=== PATIENT | male | born 1960 | race Caucasian/White ===

== ENCOUNTER 2023-08-04 10:24 | Emergency (ER) | payer BC, SELFPAY ==
[2023-08-04 10:33] VITALS: BP 138/97; PULSE 78; RESP 12; TEMP 36.2; O2SAT 98; BMI 26.9
--- NOTE | 2023-08-04 10:59 | ED.GENADULT ---
HPI - General Adult General Time Seen by Provider: 10:59 Date Seen: 08/04/23 Chief complaint: Nausea/Vomiting Stated complaint: obstruction in esophagus Time Seen by Provider: 08/04/23 10:59 Source: patient and RN notes reviewed Mode of arrival: ambulatory Limitations: no limitations History of Present Illness HPI narrative: This 63-year-old male is presenting with concern steak food bolus impaction. He was eating at a restaurant at 5:00 p.m. last night when steak become stuck. He had vomited up this food bolus by about 5:30 p.m.. By 10:00 a.m. last night, patient thought he could eat again and ate more steak. He states this was a grave mistake. This became obstructed. He is had sense of pain and burning that will buildup and then he will vomit. He thought maybe he was getting some water down but he has had this episodic continuing pain with subsequent vomiting. He is not vomited up the steak. He has had a history of food getting stuck before but has never required an EGD. Patient denies any cardiac history, no significant respiratory history, does have hypertension but admittedly did not take his lisinopril this morning. Related Data Home Medications Medication Instructions Recorded Confirmed atorvastatin 20 mg tablet 20 mg PO DAILY 08/04/23 08/04/23 lisinopril 20 mg tablet 20 mg PO BID 08/04/23 08/04/23 Allergies Allergy/AdvReac Type Severity Reaction Status Date / Time No Known Drug Allergies Allergy Verified 08/04/23 10:39 Review of Systems Status of ROS: Reports: 6 or more systems reviewed and unremarkable except as noted in History and below [facility] Social History Smoking Status: Former smoker How often do you have a drink containing alcohol: 4 or more times a week AUDIT-C Alcohol total score: 4 Non-prescribed substance use: marijuana (any form) Non-prescribed substance use details: thc edibles twice/week Exam Const: Vital Signs, click to edit/add: Vital Signs - 24 hr 08/04/23 10:33 08/04/23 11:30 08/04/23 11:31 Temperature 97.1 F L Pulse Rate 86 Pulse Rate [Pulse Oximeter] 78 80 Respiratory Rate 12 12 12 Blood Pressure 171/110 H Blood Pressure [Ri ght Upper Arm] 138/97 H 171/110 H Pulse Oximetry 98 97 97 Oxygen Delivery Me thod Room Air Room Air 08/04/23 11:34 08/04/23 12:01 08/04/23 13:42 Temperature 97.1 F L Pulse Rate 71 Pulse Rate [Pulse Oximeter] 72 Respiratory Rate 12 12 Blood Pressure 162/95 H Blood Pressure [Ri ght Upper Arm] 142/75 H Pulse Oximetry 98 100 Oxygen Delivery Me thod 63-year-old male hanging onto an emesis bag which I did see him vomit small amount of clear fluids that looked like water up once. He is able to speak in complete sentences, no concern for his airway. Face is atraumatic, sclera clear, conjugate gaze. Neck supple without masses. Lungs are clear with good air entry, no wheezing or crackles. CV regular rate and rhythm no murmur, normal S1 and S2. Abdomen is soft, nontender, nondistended. Documenting provider has reviewed patient's vital signs: yes Course Course Hospital Course: Will establish cardiac monitoring, pulse oximetry an IV. Will give him a L of normal saline and identify basic labs. Will try a 1 mg IV glucagon. I have paged our general surgeon, talked with our cook house supervisor to see if we could possibly arrange for emergent EGD here. I have shared with the patient that we do not have anyone on-call for this, I cannot promise that we will be able to do this procedure here. Will 1st see if glucagon works. Reevaluation(s) Time of Reevaluation #1: 11:47 Reevaluation #1: Reviewed with patient that at this point we have not gotten any call back from nursing staff to come in for endoscopy. Again, we do not have an emergent call scheduled for this but we did attempt to see if we could find any staff to come in. The glucagon did not work. We will contact [facility] where they do have emergent endoscopy and see if they will accept the patient. Time of Reevaluation #2: 13:21 Reevaluation #2: Patient is feeling better. Between the EZ gas and glucagon, his symptoms have resolved, has been able to drink 2 full glasses of water without any complication. He states he feels better. We are going to discharge to home with initial liquid diet. Nursing staff will be contacting [facility] to let them know he will not be coming. Consultations Consultation #1: Have heard back from , this is going to depend on if we can find nursing staff to assist with this. They are working on this currently and will let me know. If we cannot find nursing staff in the glucagon does not work, will contact [facility]. Time: 11:25 Consultation #2: Have heard back from Dr. Kumar that we cannot find staff to do this procedure here at this time. Time: 11:39 Consultation #3: Spoke with Dr. Snowden at [facility] ED. She would like me to try [employer] and will do so. If this doesn't work, we will send patient to them for arrangement of emergent endoscopy. I will only call her back if this should work and patient would not come. Time: 11:48 Vital Signs Vital signs: Initial Vital Signs Temperature 97.1 F L 08/04/23 10:33 Temperature Source Temporal Artery Scan 08/04/23 10:33 Pulse Rate 78 08/04/23 10:33 Pulse Rhythm Regular 08/04/23 10:33 Respiratory Rate 12 08/04/23 10:33 Blood Pressure 138/97 H 08/04/23 10:33 Blood Pressure Mean 110 H 08/04/23 10:33 Blood Pressure Position Supine 08/04/23 10:33 Pulse Oximetry 98 08/04/23 10:33 Oxygen Delivery Method Room Air 08/04/23 10:33 Vital Signs Temperature 97.1 F L 08/04/23 10:33 Pulse Rate 78 08/04/23 10:33 Respiratory Rate 12 08/04/23 10:33 Blood Pressure 138/97 H 08/04/23 10:33 Pulse Oximetry 98 08/04/23 10:33 Oxygen Delivery Method Room Air 08/04/23 10:33 Temperature 97.1 F L 08/04/23 13:42 Pulse Rate 72 08/04/23 13:42 Respiratory Rate 12 08/04/23 13:42 Blood Pressure 142/75 H 08/04/23 13:42 Pulse Oximetry 100 08/04/23 12:01 Oxygen Delivery Method Room Air 08/04/23 11:30 Medical Decision Making Lab Data Labs: Lab Results 08/04/23 Range/Units 11:29 WBC 9.55 (4.50-11.00) K/uL RBC 5.52 (4.30-5.90) m/uL Hgb 15.8 (13.5-17.5) gm/dL Hct 46.9 (37.0-53.0) % MCV 85 (80-100) fL MCH 29 (26-34) pg MCHC 34 (32-36) gm/dL RDW Coeff of [place] 14.4 (11.5-15.5) % Plt Count 326 (140-440) K/uL Neut % (Auto) 75.7 H (42.0-72.0) % Lymph % (Auto) 11.6 L (20-44) % [place] % (Auto) 10.3 (0.0-11.0) % Eos % (Auto) 1.3 (0.0-7.0) % Baso % (Auto) 1.0 (0.0-3.0) % Neut # (Auto) 7.20 H (1.7-7.0) K/uL Lymph # (Auto) 1.10 (0.90-2.90) K/uL [place] # (Auto) 1.00 H (0.00-0.90) K/UL Eos # (Auto) 0.12 (0.00-0.50) K/uL Baso # (Auto) 0.10 (0.00-0.30) K/uL Abs Immat Gran (auto) 0.01 (0.00-0.30) K/uL Imm/Tot Granulo (auto) 0.1 % Sodium 143 (135-149) mmol/L Potassium 4.6 (3.6-5.1) mmol/L Chloride 107 (96-114) mmol/L Carbon Dioxide 20 (20-32) mmol/L Anion Gap 16 H (7-15) mEq/L BUN 20 (7-30) mg/dL Creatinine 0.8 (0.5-1.5) mg/dL Estimated Creat Clear 79.48 Estimated GFR 99 ml/min Glucose 103 (60-115) mg/dL Calcium 9.8 (8.4-10.6) mg/dL Discharge Plan Discharge Clinical Impression: Esophageal obstruction due to food impaction Patient Disposition: Home, Self-Care Condition: Stable Instructions: Food Impaction (ED) Additional Instructions: Need to stay on a liquid diet for the next 24-48 hours to allow some healing of the esophagus. When there is a food impaction, this can irritate the tissues around it. We will initiate omeprazole and you should take this daily until further advised. In order has been placed for an EGD, our endoscopy center should contact you hopefully on Saturday. If they have not contacted you Saturday, try to call the hospital an ask for the endoscopy center. You may advance to soft foods, need to chew food very thoroughly, take small bites. Bread and meat can tend to impact in the esophagus. Activity Level: Activity as Tolerated Prescriptions: No Action atorvastatin 20 mg tablet 20 mg PO DAILY lisinopril 20 mg tablet 20 mg PO BID Stand Alone Forms: [employer] Info Instructions
[2023-08-04] MEDS: PANTOPRAZOLE SODIUM 40 MG INJ IVP (11:24)
[2023-08-04] MEDS: GLUCAGON,HUMAN RECOMBINANT 1 MG/ML VIAL IV (11:24)
[2023-08-04] MEDS: 0.9 % SODIUM CHLORIDE 1000 ml 1,000 ML 500 ML IV (11:25)
[2023-08-04 11:30] VITALS: BP 171/110; PULSE 80; RESP 12; O2SAT 97
[2023-08-04 11:31] VITALS: BP 171/110; PULSE 86; RESP 12; O2SAT 97
[2023-08-04 11:34] VITALS: O2SAT 98
[2023-08-04 11:34] LABS: Eosinophils Absolute Auto 0.12 K/uL (0.00-0.50); Eosinophils Percent Auto 1.3 % (0.0-7.0); Hematocrit 46.9 % (37.0-53.0); Hemoglobin* 15.8 gm/dL (13.5-17.5); Immature Granulocytes Abs Auto 0.01 K/uL (0.00-0.30); Immature Granulocytes Pct Auto 0.1 %; Lymphocytes Percent Auto 11.6 % (20-44); Mean Corpuscular HGB Conc 34 gm/dL (32-36); Mean Corpuscular Hemoglobin 29 pg (26-34); Mean Corpuscular Volume 85 fL (80-100); Monocytes Percent Auto 10.3 % (0.0-11.0); Neutrophils Percent Auto 75.7 % (42.0-72.0); Platelet Count* 326 K/uL (140-440); RDW Coefficient of Variation % 14.4 % (11.5-15.5); Red Blood Count 5.52 m/uL (4.30-5.90); White Blood Count* 9.55 K/uL (4.50-11.00)
[2023-08-04 11:44] LABS: Chloride* 107 mmol/L (96-114); Potassium* 4.6 mmol/L (3.6-5.1); Sodium* 143 mmol/L (135-149)
[2023-08-04 11:46] LABS: Slide Review Reflex No
[2023-08-04 11:47] LABS: Anion Gap 16 mEq/L (7-15); Blood Urea Nitrogen* 20 mg/dL (7-30); Carbon Dioxide* 20 mmol/L (20-32); Creatinine* 0.8 mg/dL (0.5-1.5); Est. Creatinine Clearance* 79.48; Estimated Glomerular Filt Rate 99 ml/min
[2023-08-04 11:48] LABS: Calcium* 9.8 mg/dL (8.4-10.6); Glucose* 103 mg/dL (60-115)
[2023-08-04 12:01] VITALS: BP 162/95; PULSE 71; RESP 12; O2SAT 100
[2023-08-04] MEDS: SIMETHICONE/SOD BICARB/CIT AC 1 EACH GRAN.EF.PK PO (12:14)
--- NOTE | 2023-08-04 13:30 | ED.NURSE ---
Pt able to drink two full glasses of water after meds. Pt reports improvement in discomfort. Per MD, Pt no longer needs to transfer. [facility] ED updated.
[2023-08-04 13:42] VITALS: BP 142/75; PULSE 72; RESP 12; TEMP 36.2
--- NOTE | 2023-08-04 13:43 | ED.NURSE ---
EGD order entered by MD. Left voicemail for Endo Shop Assistant with Pt info.
== END 2023-08-04 13:43 | disposition home or self-care (01) ==
PROVIDERS: Emergency Provider Family Medicine; PCP Family Medicine
DX: T18.128A Food in esophagus causing other injury, initial encounter (principal)
CPT/HCPCS: 36415; 80048; 85025; 94761; 96361; 96374; 96375; 99284; C9113; J1610; J7030

== ENCOUNTER 2023-08-19 07:55 | Outpatient (CLI) | payer BC, SELFPAY ==
--- NOTE | 2023-08-19 08:29 | W.ANESCHARGE ---
Anesthesia Charges Start Date/Time Anesthesia Start Date: 08/19/23 Anesthesia Start Time: 08:45 Stop Date/Time Anesthesia Stop Date: 08/19/23 Anesthesia Stop Time: 09:04
--- NOTE | 2023-08-19 09:05 | W.ANESCHARGE ---
Anesthesia Charges Start Date/Time Anesthesia Start Date: 08/19/23 Anesthesia Start Time: 08:45 Stop Date/Time Anesthesia Stop Date: 08/19/23 Anesthesia Stop Time: 09:04
== END 2023-08-19 07:56 | disposition home or self-care (01) ==
LOC: OP CLINIC 07:56
PROVIDERS: PCP Family Medicine; Visit Provider Surgery
DX: R13.10 Dysphagia, unspecified (principal); K44.9 Diaphragmatic hernia without obstruction or gangrene; K31.7 Polyp of stomach and duodenum
CPT/HCPCS: 43239; 731; 88305; J2704